=== PATIENT | female | born 1960 | race Caucasian/White ===

== ENCOUNTER 2021-08-31 21:27 | Observation (INO) | payer MEDICARE, BC, OTHER ==
--- NOTE | 2021-08-31 22:09 | ED ---
Chest Pain HPI - General Chief Complaint: Chest Pain Stated Complaint: Chest Pain Time Seen by Provider: 08/31/21 21:51 Source: patient, EMS Mode of arrival: EMS Limitations: no limitations - History of Present Illness Initial Comments: This patient is a 60-year-old woman who complains of having left chest pain that is been going on for couple of weeks. She states that the pain is constant, radiates to her left arm. She was seen for this previously and had stress test and echocardiogram arranged and that actually was performed in the clinic this a fternoon. Tonight the patient was sitting in [place] and felt that the symptoms were more severe and also accompanied by dizziness. EMS was called and brought the patient here. She is not having diaphoresis, dyspnea, nausea or vomiting, palpitations or syncope. MD Complaint: chest pain -: week(s) Onset: during rest Pain Location: left chest Pain Radiation: LUE Severity: moderate Quality: sharp Consistency: constant Improves With: nothing Worsens With: nothing Treatments Prior to Arrival: none - Related Data Allergies Allergy/AdvReac Type Severity Reaction Status Date / Time Sulfa (Sulfonamide Allergy Anaphylaxis Verified 08/31/21 21:44 Antibiotics) sulfamethoxazole Allergy Anaphylaxis Verified 08/31/21 21:44 [From Bactrim] sumatriptan [From Imitrex] Allergy Anaphylaxis Verified 08/31/21 21:44 trimethoprim [From Bactrim] Allergy Anaphylaxis Verified 08/31/21 21:44 Review of Systems ROS Statement: Those systems with pertinent positive or pertinent negative responses have been documented in the HPI. ROS Other: All systems not noted in ROS Statement are negative. Constitutional: Denies: fever, chills Respiratory: Denies: cough, dyspnea Cardiovascular: Reports: as per HPI, chest pain. Denies: palpitations, orthopnea, edema, syncope Gastrointestinal: Denies: abdominal pain, nausea, vomiting, melena, hematochezia Genitourinary: Denies: dysuria, hematuria Musculoskeletal: Denies: back pain Skin: Denies: rash Neurological: Denies: headache, weakness EKG Findings - EKG Results: EKG: interpreted by HARJINDER BENZ, sinus rhythm (Rate 87 bpm), normal axis, normal QRS, normal ST/T, no acute changes Past Medical History Past Medical History: Asthma, Diabetes Mellitus, Fibromyalgia, Hyperlipidemia, Hypertension, Respiratory Disorder, Rheumatoid Arthritis (RA) Additional Past Medical History / Comment(s): Esophagitis History of Any Multi-Drug Resistant Organisms: None Reported Past Surgical History: Cholecystectomy, Joint Replacement Additional Past Surgical History / Comment(s): Spinal fusion Past Psychological History: No Psychological Hx Reported Smoking Status: Never smoker Past Alcohol Use History: None Reported Past Drug Use History: None Reported General Exam Limitations: no limitations General appearance: alert, in no apparent distress Head exam: Present: atraumatic, normocephalic Eye exam: Present: normal appearance. Absent: scleral icterus, conjunctival injection Neck exam: Present: normal inspection Respiratory exam: Present: normal lung sounds bilaterally. Absent: respiratory distress, wheezes, rales, rhonchi, stridor, chest wall tenderness Cardiovascular Exam: Present: regular rate, normal rhythm, normal heart sounds. Absent: systolic murmur, diastolic murmur, rubs, gallop GI/Abdominal exam: Present: soft, tenderness (There is some mild left upper quadrant tenderness without rebound or guarding.), organomegaly (Liver is at the upper limit of normal by percussion). Absent: distended, guarding, rebound, rigid, mass Extremities exam: Present: normal inspection, normal capillary refill. Absent: pedal edema, calf tenderness Back exam: Present: normal inspection Neurological exam: Present: alert Skin exam: Present: warm, dry, intact, normal color. Absent: rash Course Vital Signs 08/31/21 21:38 Temperature 98.2 F Pulse Rate 85 Respiratory 18 Rate Blood Pressure 177/88 O2 Sat by Pulse 97 Oximetry Disposition Clinical Impression: Chest pain Disposition: HOME SELF-CARE Condition: Good Instructions (If sedation given, give patient instructions): Chest Pain (ED) Is patient prescribed a controlled substance at d/c from ED?: No Referrals: Ilsa Jackson MD [Primary Care Provider] - 1-2 days
[2021-08-31 22:35] LABS: Basophils % (A) 0 %; Eosinophils # (A) 0.1 k/uL (0-0.7); Eosinophils % (A) 3 %; HCT 39.9 % (34.0-46.0); Lymphocytes # (A) 2.3 k/uL (1.0-4.8); Lymphocytes % (A) 43 %; MCHC 32.6 g/dL (31.0-37.0); MCV 94.9 fL (80.0-100.0); Mean Platelet Volume 6.8; Monocytes # (A) 0.4 k/uL (0-1.0); Monocytes % (A) 7 %; Neutrophils # (A) 2.4 k/uL (1.3-7.7); Neutrophils % (A) 45 %; Platelet Count 200 k/uL (150-450); RBC 4.21 m/uL (3.80-5.40); WBC 5.4 k/uL (3.8-10.6)
--- NOTE | 2021-08-31 22:43 | XR ---
EXAMINATION TYPE: XR chest 2V DATE OF EXAM: 08/31/2021 COMPARISON: NONE HISTORY: Chest pain TECHNIQUE: 2 view FINDINGS: Heart and mediastinum are normal. Lungs are clear. Diaphragm is normal. Bony thorax appears normal. IMPRESSION: Normal chest.
[2021-08-31 22:48] LABS: ALT 40 U/L (4-34); AST 37 U/L (14-36); African American GFR (CKD) >90 (>60 ml/min/1.73 sqM); Albumin 4.1 g/dL (3.5-5.0); Alkaline Phosphatase 160 U/L (38-126); Amylase 45 U/L (30-110); Anion Gap 9 mmol/L; Blood Urea Nitrogen 15 mg/dL (7-17); Calcium 9.5 mg/dL (8.4-10.2); Carbon Dioxide 23 mmol/L (22-30); Chloride 106 mmol/L (98-107); Glucose 131 mg/dL (74-99); Lipase 141 U/L (23-300); Magnesium 1.8 mg/dL (1.6-2.3); Non-African American GFR(CKD) >90 (>60 ml/min/1.73 sqM); Potassium 3.7 mmol/L (3.5-5.1); Sodium 138 mmol/L (137-145); Total Bilirubin 0.5 mg/dL (0.2-1.3); Total Protein 6.6 g/dL (6.3-8.2)
[2021-09-01] MEDS ORDERED: NITROGLYCERIN SL TABS 0.4 MG TAB SUBLINGUAL PRN (00:38)
[2021-09-01] MEDS ORDERED: IPRATROPIUM 0.5 MG/2.5 ML NEBU INHALATION PRN (01:43)
[2021-09-01] MEDS ORDERED: ALBUTEROL NEBULIZED 2.5 MG/3 ML INHALATION PRN (01:43)
--- NOTE | 2021-09-01 01:44 | P.HPIM ---
History of Present Illness H&P Date: 09/01/21 The patient is a 60-year-old female with a PMH of type II DM, asthma, hyperlipidemia, hypertension, rheumatoid arthritis who presents to the emergency room with complaints of chest pain. The patient reports that she has been experiencing left-sided chest pain intermittently for the past few weeks. She underwent an exercise stress test as well as echocardiogram earlier today at [facility] but notes that she was at her confucianist at 6 PM when her pain worsened. She reported experiencing 9 out of 10 left-sided pressure- like chest discomfort, with associated shortness of breath, nausea, and lightheadedness. The pain was nonpleuritic and radiated down to her left arm with no exacerbating features. She notes that the pain was improved with sublingual nitroglycerin provided by the EMS. She denied experiencing diaphoresis, fever, chills, cough, or palpitations. EKG in the emergency room revealed sinus rhythm at [address]/T-wave changes noted as reviewed by me. Chest x-ray was unremarkable. Laboratory evaluation revealed a troponin of less than 0.012, AST 37, ALT 40, alk phos 160, and glucose 131. Review of systems: Pertinent positives and negatives as discussed in HPI, a complete review of systems was performed and all other systems are negative. Physical examination: General: non toxic, no distress, appears at stated age, morbidly obese Derm: no unusual rashes/lesions no unusual ecchymoses, warm, dry Head: atraumatic, normocephalic, symmetric Eyes: EOMI, no lid lag, anicteric sclera, pupils equal round reactive to light ENT: Nose and ears atraumatic, no thrush, no pharyngeal erythema Neck: No thyromegaly, no cervical lymphadenopathy, trachea midline, supple Mouth: no lip lesion, mucus membranes moist Cardiovascular: S1S2 reg, no murmur, positive posterior tibial pulse bilateral, no edema, capillary refill less than 2 seconds Lungs: CTA bilateral, no rhonchi, no rales , no accessory muscle use Abdominal: soft, nontender to palpation, no guarding, no appreciable organomegaly, normal bowel sounds Ext: no gross muscle atrophy, muscle strength 5 out of 5 in all 4 extremities grossly, no contractures, Neuro: CN II-XI grossly intact, light touch intact all 4 extremities, finger to nose within normal limits, Psych: Alert, oriented, appropriate affect Assessment/plan Chest pain, rule out ACS -Cardiac monitoring -Cardiology consulted -Trend troponin -Continue with aspirin -Consider obtaining records from [facility] for patient's stress test and echo Chronic conditions: Type II DM, hypertension, hyperlipidemia, asthma, rheumatoid arthritis -Check A1c -Lispro insulin sliding scale blood glucose monitoring -Continue with remaining home medications DVT prophylaxis -Heparin subcu The patient is admitted with an anticipated less than 2 midnight stay for evaluation of chest pain CODE STATUS: Full Code Discussed with: Patient Anticipated discharge date: in am Anticipated discharge place: Home Past Medical History Past Medical History: Asthma, Diabetes Mellitus, Fibromyalgia, Hyperlipidemia, Hypertension, Respiratory Disorder, Rheumatoid Arthritis (RA) Additional Past Medical History / Comment(s): Esophagitis History of Any Multi-Drug Resistant Organisms: None Reported Past Surgical History: Cholecystectomy, Joint Replacement Additional Past Surgical History / Comment(s): Spinal fusion Past Psychological History: No Psychological Hx Reported Smoking Status: Never smoker Past Alcohol Use History: None Reported Past Drug Use History: None Reported Medications and Allergies Home Medications Medication Instructions Recorded Confirmed Type Albuterol Nebulized [Ventolin 2.5 mg INHALATION RT-TID PRN 08/31/21 08/31/21 H istory Nebulized] Albuterol Sulfate [Ventolin HFA] 2 puff INHALATION RT-QID PRN 08/31/21 08/31/21 History Azelastine HCl 2 spr EA NOSTRIL BID 08/31/21 08/31/21 History Candesartan Cilexetil 16 mg PO DAILY 08/31/21 08/31/21 History Docusate [Colace] 100 mg PO BID 08/31/21 08/31/21 History EPINEPHrine (Auto Inject) [Epipen] 0.3 mg IM ONCE PRN 08/31/21 08/31/21 History Ergocalciferol [Vitamin D2 (1250 1,250 mcg PO WE 08/31/21 08/31/21 History Mcg = 43091 Iu)] Fluticasone Nasal [place] [Flonase 2 spr EA NOSTRIL BID 08/31/21 08/31/21 History Nasal [place]] Furosemide [Lasix] 20 mg PO DAILY 08/31/21 08/31/21 History Gabapentin [Neurontin] 100 mg PO BID 08/31/21 08/31/21 History Ipratropium Nebulized [Atrovent 0.5 mg INHALATION RT-TID PRN 08/31/21 08/31/21 History Nebulized 0.2 MG/ML] Levothyroxine Sodium [Synthroid] 125 mcg PO DAILY 08/31/21 08/31/21 History Mometasone/Formoterol [Dulera 200 2 puff INHALATION RT-BID 08/31/21 08/31/21 History Mcg-5 Mcg Inhaler] Montelukast [Singulair] 10 mg PO HS 08/31/21 08/31/21 History Multivitamins, Thera [Multivitamin 1 tab PO DAILY 08/31/21 08/31/21 History (formulary)] Pantoprazole [Protonix] 40 mg PO BID 08/31/21 08/31/21 History Potassium Chloride ER [K-Dur 20] 20 meq PO BID 08/31/21 08/31/21 History Pravastatin Sodium [Pravachol] 20 mg PO HS 08/31/21 08/31/21 History Sucralfate [Carafate] 1 gm PO AC-BID 08/31/21 08/31/21 History Topiramate [Topamax] 100 mg PO HS 08/31/21 08/31/21 History Upadacitinib [Rinvoq] 15 mg PO DAILY 08/31/21 08/31/21 History metFORMIN HCL [Glucophage XR] 750 mg PO BID 08/31/21 08/31/21 History Allergies Allergy/AdvReac Type Severity Reaction Status Date / Time Sulfa (Sulfonamide Allergy Rash/Hives/Abdominal Verified 08/31/21 23:34 Antibiotics) Pain sulfamethoxazole Allergy Rash/Hives Verified 08/31/21 23:34 [From Bactrim] trimethoprim [From Bactrim] Allergy Rash/Hives Verified 08/31/21 23:34 sumatriptan [From Imitrex] AdvReac Chest Pain Verified 08/31/21 23:34 Physical Exam Vitals: Vital Signs Temp Pulse Resp BP Pulse Ox 08/31/21 23:39 76 16 137/81 97 08/31/21 22:41 78 18 153/84 97 08/31/21 21:38 98.2 F 85 18 177/88 97 Intake and Output 08/31/21 08/31/21 09/01/21 14:59 22:59 06:59 Other: Weight 98.883 kg Results CBC & Chem 7: 08/31/21 22:22 08/31/21 22:22 Labs: Abnormal Lab Results - Last 24 Hours (Table) 08/31/21 Range/Units 22:22 Glucose 131 H (74-99) mg/dL AST 37 H (14-36) U/L ALT 40 H (4-34) U/L Alkaline Phosphatase 160 H (38-126) U/L
[2021-09-01] MEDS ORDERED: LEVOTHYROXINE 125 MCG TAB PO SCH (06:30)
[2021-09-01] MEDS ORDERED: SUCRALFATE 1 GM TAB PO SCH (07:30)
[2021-09-01] MEDS ORDERED: INSULIN ASPART (NovoLOG) 100 UNIT/ML VIAL SQ SCH (07:30)
[2021-09-01] MEDS ORDERED: SYMBICORT 160-4.5 MCG INHALER INHALATION SCH (08:00)
[2021-09-01] MEDS ORDERED: HEPARIN SODIUM,PORCINE/PF 5,000 UNIT/0.5 ML SYRINGE SQ SCH (08:00)
--- NOTE | 2021-09-01 08:16 | P.CRDCN ---
History of Present Illness Consult date: 09/01/21 History of present illness: HISTORY OF PRESENT ILLNESS: This is a 60-year-old female with a past medical history significant for hypertension, hyperlipidemia, diabetes, fibromyalgia, and hypothyroidism. Patient does not follow with a university internship. We have been asked to see the patient in consultation for chest pain. Patient examined at the bedside. Patient states she has been having chest pain on and off for the past 2 weeks. She reports the pain can come at any time and is not associated with exertion. She does report the symptoms seem to be worse at night however. She reports the pain is in the middle of her chest and under her left breast and goes down her left arm. She reports she saw her PCP in [facility] (who works out of [facility]) and ordered a stress test and an echocardiogram. Patient states she had this done yesterday at [facility] at [address]. She was not told of the results. 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 She states she began to feel lightheaded. After the sermon, EMS was called. She received two nitro in route to the hospital with some stated relief of the chest pain. This morning, she reports her chest is sore to touch from the echocardiogram she had done yesterday. She denies having chest wall tenderness prior to having the echo performed yesterday. * EKG reveals sinus mechanism with no signs of acute ischemia * Chest xray normal chest. * Laboratory data: WBC 5.4. Hemoglobin 13.0. Platelet count 200. D-dimer 0.33. Sodium 138. Potassium 3.7. BUN 15. Creatinine 0.71. Magnesium 1.8. AST 37. ALT 40. Troponin negative 3. * Current home cardiac medications include pravastatin 20 mg at night, Lasix 20 mg daily. REVIEW OF SYSTEMS: At the time of my exam: CONSTITUTIONAL: Denies fever or chills. HEENT: Denies blurred vision, vision changes, or eye pain. Denies hemoptysis CARDIOVASCULAR: Denies chest pain. Denies orthopnea. Denies PND. Denies palpitations RESPIRATORY: Denies shortness of breath. GASTROINTESTINAL: Denies abdominal pain. Denies nausea or vomiting. HEMATOLOGIC: Denies bleeding disorders. GENITOURINARY: Denies any blood in urine. SKIN: Denies pruitis. Denies rash. PHYSICAL EXAM: VITAL SIGNS: Reviewed. GENERAL: Well-developed in no acute distress. HEENT: Head is normocephalic. Pupils are equal, round. Sclerae anicteric. Mucous membranes of the mouth are moist. Neck supple. No JVD or thyromegaly LUNGS: Respirations even and unlabored. Lungs essentially clear to auscultation bilaterally. HEART: Regular rate and rhythm. S1 and S2 heard. ABDOMEN: Soft. Nondistended. Nontender. EXTREMITIES: Normal range of motion. No clubbing or cyanosis. Peripheral pulses intact. No lower extremity edema NEUROLOGIC: Awake and alert. Oriented x 3. ASSESSMENT: Chest pain Hypertension Hyperlipidemia Diabetes Obesity: BMI 39.9 PLAN: An acute coronary event has been ruled out Resume home cardiac medications Obtain records from [facility] of stress test and echocardiogram completed yesterday Further recommendations pending results of records obtained Nurse practitioner note has been reviewed by physician. Signing provider agrees with the documented findings, assessment, and plan of care. Past Medical History Past Medical History: Asthma, Diabetes Mellitus, Fibromyalgia, Hyperlipidemia, Hypertension, Respiratory Disorder, Rheumatoid Arthritis (RA) Additional Past Medical History / Comment(s): Esophagitis History of Any Multi-Drug Resistant Organisms: None Reported Past Surgical History: Cholecystectomy, Joint Replacement Additional Past Surgical History / Comment(s): Spinal fusion Past Psychological History: No Psychological Hx Reported Smoking Status: Never smoker Past Alcohol Use History: None Reported Past Drug Use History: None Reported Medications and Allergies Home Medications Medication Instructions Recorded Confirmed Type Albuterol Nebulized [Ventolin 2.5 mg INHALATION RT-TID PRN 08/31/21 08/31/21 History Nebulized] Albuterol Sulfate [Ventolin HFA] 2 puff INHALATION RT-QID PRN 08/31/21 08/31/21 History Azelastine HCl 2 spr EA NOSTRIL BID 08/31/21 08/31/21 History Candesartan Cilexetil 16 mg PO DAILY 08/31/21 08/31/21 History Docusate [Colace] 100 mg PO BID 08/31/21 08/31/21 History EPINEPHrine (Auto Inject) [Epipen] 0.3 mg IM ONCE PRN 08/31/21 08/31/21 History Ergocalciferol [Vitamin D2 (1250 1,250 mcg PO WE 08/31/21 08/31/21 History Mcg = 48158 Iu)] Fluticasone Nasal [place] [Flonase 2 spr EA NOSTRIL BID 08/31/21 08/31/21 History Nasal [place]] Furosemide [Lasix] 20 mg PO DAILY 08/31/21 08/31/21 History Gabapentin [Neurontin] 100 mg PO BID 08/31/21 08/31/21 History Ipratropium Nebulized [Atrovent 0.5 mg INHALATION RT-TID PRN 08/31/21 08/31/21 History Nebulized 0.2 MG/ML] Levothyroxine Sodium [Synthroid] 125 mcg PO DAILY 08/31/21 08/31/21 History Mometasone/Formoterol [Dulera 200 2 puff INHALATION RT-BID 08/31/21 08/31/21 History Mcg-5 Mcg Inhaler] Montelukast [Singulair] 10 mg PO HS 08/31/21 08/31/21 History Multivitamins, Thera [Multivitamin 1 tab PO DAILY 08/31/21 08/31/21 History (formulary)] Pantoprazole [Protonix] 40 mg PO BID 08/31/21 08/31/21 History Potassium Chloride ER [K-Dur 20] 20 meq PO BID 08/31/21 08/31/21 History Pravastatin Sodium [Pravachol] 20 mg PO HS 08/31/21 08/31/21 History Sucralfate [Carafate] 1 gm PO AC-BID 08/31/21 08/31/21 History Topiramate [Topamax] 100 mg PO HS 08/31/21 08/31/21 History Upadacitinib [Rinvoq] 15 mg PO DAILY 08/31/21 08/31/21 History metFORMIN HCL [Glucophage XR] 750 mg PO BID 08/31/21 08/31/21 History Allergies Allergy/AdvReac Type Severity Reaction Status Date / Time Sulfa (Sulfonamide Allergy Rash/Hives/Abdominal Verified 08/31/21 23:34 Antibiotics) Pain sulfamethoxazole Allergy Rash/Hives Verified 08/31/21 23:34 [From Bactrim] trimethoprim [From Bactrim] Allergy Rash/Hives Verified 08/31/21 23:34 sumatriptan [From Imitrex] AdvReac Chest Pain Verified 08/31/21 23:34 Physical Exam Vitals: Vital Signs Temp Pulse Resp BP Pulse Ox 09/01/21 06:42 97.9 F 64 16 131/64 99 09/01/21 02:35 76 15 130/45 99 08/31/21 23:39 76 16 137/81 97 08/31/21 22:41 78 18 153/84 97 08/31/21 21:38 98.2 F 85 18 177/88 97 Intake and Output 08/31/21 09/01/21 09/01/21 22:59 06:59 14:59 Other: Weight 98.883 kg Results 08/31/21 22:22 08/31/21 22:22 Cardiac Enzymes 08/31/21 08/31/21 09/01/21 Range/Units 22:22 22:22 01:27 AST 37 H (14-36) U/L Troponin I <0.012 <0.012 (0.000-0.034) ng/mL 09/01/21 Range/Units 03:14 AST (14-36) U/L Troponin I <0.012 (0.000-0.034) ng/mL CBC 08/31/21 Range/Units 22:22 WBC 5.4 (3.8-10.6) k/uL RBC 4.21 (3.80-5.40) m/uL Hgb 13.0 (11.4-16.0) gm/dL Hct 39.9 (34.0-46.0) % Plt Count 200 (150-450) k/uL Comprehensive Metabolic Panel 08/31/21 Range/Units 22:22 Sodium 138 (137-145) mmol/L Potassium 3.7 (3.5-5.1) mmol/L Chloride 106 (98-107) mmol/L Carbon Dioxide 23 (22-30) mmol/L BUN 15 (7-17) mg/dL Creatinine 0.71 (0.52-1.04) mg/dL Glucose 131 H (74-99) mg/dL Calcium 9.5 (8.4-10.2) mg/dL AST 37 H (14-36) U/L ALT 40 H (4-34) U/L Alkaline Phosphatase 160 H (38-126) U/L Total Protein 6.6 (6.3-8.2) g/dL Albumin 4.1 (3.5-5.0) g/dL Current Medications Generic Name Dose Route Start Last Admin Trade Name Freq PRN Reason Stop Dose Admin Albuterol Sulfate 2.5 mg 09/01/21 01:43 Albuterol Nebulized 2.5 Mg/3 Ml INHALATION RT-QID PRN Shortness Of Breath Aspirin 325 mg 09/02/21 09:00 Aspirin 325 Mg Tab PO DAILY [facility] Budesonide/Formoterol Fumarate 2 puff 09/01/21 08:00 09/01/21 07:05 Symbicort 160-4.5 Mcg Inhaler INHALATION 2 puff RT-BID [facility] Administration Docusate Sodium 100 mg 09/01/21 09:00 Docusate 100 Mg Cap PO BID [facility] Fluticasone Propionate 2 spray 09/01/21 09:00 Fluticasone 50mcg/[place] Nasal 16gm EA NOSTRIL BID [facility] Furosemide 20 mg 09/01/21 09:00 Furosemide 20 Mg Tab PO DAILY [facility] Gabapentin 100 mg 09/01/21 09:00 Gabapentin 100 Mg Cap PO BID [facility] Heparin Sodium (Porcine) 5,000 unit 09/01/21 08:00 Heparin Sodium,Porcine/Pf 5,000 Unit/0.5 Ml Syringe SQ Q8HR [facility] Insulin Aspart 0 unit 09/01/21 07:30 Insulin Aspart (Novolog) 100 Unit/Ml Vial SQ ACHS [facility] Protocol Ipratropium [place] 0.5 mg 09/01/21 01:43 Ipratropium 0.5 Mg/2.5 Ml Nebu INHALATION RT-TID PRN Shortness Of Breath Levothyroxine Sodium 125 mcg 09/01/21 06:30 09/01/21 06:58 Levothyroxine 125 Mcg Tab PO 125 mcg DAILY@0630 [facility] Administration Montelukast Sodium 10 mg 09/01/21 21:00 Montelukast 10 Mg Tab PO HS [facility] Multivitamins 1 each 09/01/21 09:00 Multivitamins, Thera 1 Each Tab PO DAILY [facility] Nitroglycerin 0.4 mg 09/01/21 00:38 Nitroglycerin Sl Tabs 0.4 Mg Tab SUBLINGUAL Q5M PRN Chest Pain Pantoprazole Sodium 40 mg 09/01/21 09:00 Pantoprazole 40 Mg Tablet PO BID [facility] Potassium Chloride 20 meq 09/01/21 09:00 Potassium Chloride Er 20 Meq Tab.Er PO BID [facility] Pravastatin Sodium 20 mg 09/01/21 21:00 Pravastatin Sodium 20 Mg Tab PO HS [facility] Sucralfate 1 gm 09/01/21 07:30 Sucralfate 1 Gm Tab PO AC-BID [facility] Topiramate 100 mg 09/01/21 21:00 Topiramate 100 Mg Tab PO HS [facility] Intake and Output 08/31/21 09/01/21 09/01/21 22:59 06:59 14:59 Other: Weight 98.883 kg 08/31/21 22:22 08/31/21 22:22
[2021-09-01 08:24] VITALS: BP 121/72; PULSE 68; RESP 20; TEMP 97.7
[2021-09-01] MEDS ORDERED: FUROSEMIDE 20 MG TAB PO SCH (09:00)
[2021-09-01] MEDS ORDERED: MULTIVITAMINS, THERA 1 EACH TAB PO SCH (09:00)
[2021-09-01] MEDS ORDERED: DOCUSATE 100 MG CAP PO SCH (09:00)
[2021-09-01] MEDS ORDERED: PANTOPRAZOLE 40 MG TABLET PO SCH (09:00)
[2021-09-01] MEDS ORDERED: POTASSIUM CHLORIDE ER 20 MEQ TAB.ER PO SCH (09:00)
[2021-09-01] MEDS ORDERED: GABAPENTIN 100 MG CAP PO SCH (09:00)
[2021-09-01] MEDS ORDERED: FLUTICASONE 50MCG/SPRAY NASAL 16GM EA NOSTRIL SCH (09:00)
[2021-09-01 09:38] LABS: Glucose,Whole Blood 122 mg/dL (75-99)
--- NOTE | 2021-09-01 10:38 | P.DS ---
<Anjum Arzate - Last Filed: 09/01/21 10:50> Providers Expected date of discharge: 09/01/21 Hospital Course: Discharge Diagnosis: Atypical chest pain, acute coronary event ruled out. Hypertension Hyperlipidemia Type II ham-sstrsvu-dcshyxeyn diabetes mellitus Hypothyroidism Asthma Fibromyalgia Rheumatoid arthritis Hospital Course: Patient is a very pleasant 60-year-old female with a past medical history of hypertension, hyperlipidemia, type II ktu-fsliiha-zipwvzkwe diabetes mellitus, hypothyroidism, asthma, fibromyalgia, and rheumatoid arthritis. She presented to the Emergency department with a chief complaint of chest pain. Reporting that she has been experiencing intermittent chest pain off and on over the last 2 weeks. Patient reports she underwent a stress test and echocardiogram through [facility] yesterday that was ordered by her primary doctor secondary to these reports of intermittent chest pain. Patient reports the pain is to her left chest and describes as a squeezing sensation. Patient underwent full evaluation. Chest x-ray was negative for acute cardiopulmonary process. CBC and BMP were unremarkable. EKG revealed normal sinus rhythm at 87 bpm with no noted T wave or ST abnormality showing no signs of acute ischemia. Troponins trended negative at less than 0.012 3 draws. She was admitted under our services with consultation to cardiology and monitored overnight. Patient's condition remained stable throughout the night. She reported continued periodic episodes of intermittent chest tightness but denies any changes in or increase and previous pain. She was evaluated by cardiology. Cardiology reviewed patient's echocardiogram and stress test results from [facility] reporting all negative and normal findings. Cardiology recommended patient follow up outp atient in their office. Patient does not currently have a silk finisher that she follows with. Her PCP is Dr. Jackson. Patient's vitals have remained stable, she denies any further complaints at this time including headache, lightheadedness, dizziness, palpitations, shortness of breath, or experiencing any numbness/tingling/weakness/swelling in her extremities. Patient is medically stable for discharge at this time and to follow up with her PCP in 1-2 days and with cardiology in 1 week. Physical exam: Vital signs reviewed and stable. General: Nontoxic, no distress and appears stated age. Derm: Skin warm and dry, normal coloration for ethnicity. Head: Atraumatic, normocephalic and symmetric. Eyes: EOMs intact, no lid lag, and anicteric sclera Mouth: no lip lesions, mucus membranes moist Cardiovascular: regular rate and rhythm with normal S1S2, systolic murmur, positive posterior tibial pulses bilaterally, and cap refill < 2 seconds. No edema. Lungs: Respirations even, regular, and unlabored on room air. Lungs CTA bilaterally, no rhonchi, no rales, no wheezing, and no accessory muscle usage. Abdominal: soft, nontender to palpation, no guarding, no appreciable organomega ly Ext: ROM intact. No gross muscle atrophy, no edema, no contractures Neuro: Speech clear, face symmetrical and CN II-XII grossly intact with no noted focal neuro deficits Psych: Alert and oriented to person, place, time, and situation. Appropriate and pleasant affect. A total of 35 minutes of time were spent preparing this complex discharge summary. Patient Condition at Discharge: Stable Plan - Discharge Summary Discharge Rx Participant: No New Discharge Prescriptions: Continue Upadacitinib [Rinvoq] 15 mg PO DAILY Topiramate [Topamax] 100 mg PO HS Sucralfate [Carafate] 1 gm PO AC-BID Pravastatin Sodium [Pravachol] 20 mg PO HS Pantoprazole [Protonix] 40 mg PO BID Multivitamins, Thera [Multivitamin (formulary)] 1 tab PO DAILY Montelukast [Singulair] 10 mg PO HS Levothyroxine Sodium [Synthroid] 125 mcg PO DAILY Furosemide [Lasix] 20 mg PO DAILY Docusate [Colace] 100 mg PO BID Mometasone/Formoterol [Dulera 200 Mcg-5 Mcg Inhaler] 2 puff INHALATION RT-BID Fluticasone Nasal [place] [Flonase Nasal [place]] 2 spr EA NOSTRIL BID Candesartan Cilexetil 16 mg PO DAILY Albuterol Sulfate [Ventolin HFA] 2 puff INHALATION RT-QID PRN PRN Reason: Shortness Of Breath Ipratropium Nebulized [Atrovent Nebulized 0.2 MG/ML] 0.5 mg INHALATION RT-TID PRN PRN Reason: Shortness Of Breath metFORMIN HCL [Glucophage XR] 750 mg PO BID EPINEPHrine (Auto Inject) [Epipen] 0.3 mg IM ONCE PRN PRN Reason: Anaphylaxis Potassium Chloride ER [K-Dur 20] 20 meq PO BID Gabapentin [Neurontin] 100 mg PO BID Ergocalciferol [Vitamin D2 (1250 Mcg = 66392 Iu)] 1,250 mcg PO WE Azelastine HCl 2 spr EA NOSTRIL BID Albuterol Nebulized [Ventolin Nebulized] 2.5 mg INHALATION RT-TID PRN PRN Reason: Shortness Of Breath Discharge Medication List Albuterol Nebulized [Ventolin Nebulized] 2.5 mg INHALATION RT-TID PRN 08/31/21 [History] Albuterol Sulfate [Ventolin HFA] 2 puff INHALATION RT-QID PRN 08/31/21 [History] Azelastine HCl 2 spr EA NOSTRIL BID 08/31/21 [History] Candesartan Cilexetil 16 mg PO DAILY 08/31/21 [History] Docusate [Colace] 100 mg PO BID 08/31/21 [History] EPINEPHrine (Auto Inject) [Epipen] 0.3 mg IM ONCE PRN 08/31/21 [History] Ergocalciferol [Vitamin D2 (1250 Mcg = 13516 Iu)] 1,250 mcg PO WE 08/31/21 [History] Fluticasone Nasal [place] [Flonase Nasal [place]] 2 spr EA NOSTRIL BID 08/31/21 [History] Furosemide [Lasix] 20 mg PO DAILY 08/31/21 [History] Gabapentin [Neurontin] 100 mg PO BID 08/31/21 [History] Ipratropium Nebulized [Atrovent Nebulized 0.2 MG/ML] 0.5 mg INHALATION RT-TID PRN 08/31/21 [History] Levothyroxine Sodium [Synthroid] 125 mcg PO DAILY 08/31/21 [History] Mometasone/Formoterol [Dulera 200 Mcg-5 Mcg Inhaler] 2 puff INHALATION RT-BID 08/31/21 [History] Montelukast [Singulair] 10 mg PO HS 08/31/21 [History] Multivitamins, Thera [Multivitamin (formulary)] 1 tab PO DAILY 08/31/21 [History] Pantoprazole [Protonix] 40 mg PO BID 08/31/21 [History] Potassium Chloride ER [K-Dur 20] 20 meq PO BID 08/31/21 [History] Pravastatin Sodium [Pravachol] 20 mg PO HS 08/31/21 [History] Sucralfate [Carafate] 1 gm PO AC-BID 08/31/21 [History] Topiramate [Topamax] 100 mg PO HS 08/31/21 [History] Upadacitinib [Rinvoq] 15 mg PO DAILY 08/31/21 [History] metFORMIN HCL [Glucophage XR] 750 mg PO BID 08/31/21 [History] Follow up Appointment(s)/Referral(s): Juan Diego Villa MD [STAFF PHYSICIAN] - 1 Week (office will call pt with appointment ) Ilsa Jackson MD [Primary Care Provider] - 1-2 days Patient Instructions/Handouts: Chest Pain (ED) Activity/Diet/Wound Care/Special Instructions: Activity: As tolerated. Take breaks as needed. Diet: Heart healthy and carb consistent diet. Avoid salts, or foods with hidden salts such as canned or boxed foods and frozen dinners. Extra salt makes your heart work harder and traps the fluid in your body for longer. Special Instructions: Take all of your medications as directed and remember to keep all of your doctor's appointments and follow-up as needed. Thank you for allowing us to participate in your care, it was truly a pleasure having you for our patient!!! Discharge Disposition: HOME SELF-CARE <Natividad Tristan - Last Filed: 09/01/21 17:35> Providers Date of admission: 09/01/21 00:38 Attending physician: Jannet Cortez MD Primary care physician: Ilsa Jackson [facility] Course: Anjum Arzate NP rendered care for this patient independently, reviewed the findings and plan as documented in the note above. I did not physically speak with or examine the patient on this date.
[2021-09-01] MEDS ORDERED: MONTELUKAST 10 MG TAB PO SCH (21:00)
[2021-09-01] MEDS ORDERED: TOPIRAMATE 100 MG TAB PO SCH (21:00)
[2021-09-01] MEDS ORDERED: PRAVASTATIN SODIUM 20 MG TAB PO SCH (21:00)
[2021-09-02] MEDS ORDERED: ASPIRIN 325 MG TAB PO SCH (09:00)
== END 2021-09-01 11:48 | disposition home or self-care (01) ==
LOC: EC 21:27 → 6NMEDSUR 09-01 00:38
PROVIDERS: ADMIT Internal Medicine; ATTEND Internal Medicine
DX: R07.89 Other chest pain (principal); I10 Essential (primary) hypertension; J45.909 Unspecified asthma, uncomplicated; E11.9 Type 2 diabetes mellitus without complications; R11.0 Nausea; R42 Dizziness and giddiness; E03.9 Hypothyroidism, unspecified; E78.5 Hyperlipidemia, unspecified; M79.7 Fibromyalgia; M06.9 Rheumatoid arthritis, unspecified; E66.01 Morbid (severe) obesity due to excess calories; Z68.39 Body mass index [BMI] 39.0-39.9, adult; Z79.890 Hormone replacement therapy; Z79.51 Long term (current) use of inhaled steroids; Z79.84 Long term (current) use of oral hypoglycemic drugs; Z79.899 Other long term (current) drug therapy; Z88.2 Allergy status to sulfonamides; Z88.1 Allergy status to other antibiotic agents; Z88.8 Allergy status to other drugs, medicaments and biological substances; Z90.49 Acquired absence of other specified parts of digestive tract; Z98.1 Arthrodesis status; Z96.60 Presence of unspecified orthopedic joint implant; Z87.19 Personal history of other diseases of the digestive system; Z20.822 Contact with and (suspected) exposure to COVID-19
CPT/HCPCS: 96372; 99285; 36415; 94640; 93005 ×2; 85379; 80053; 82150; 83690; 83735; 84484 ×2; 85025; 83036; 87635; 71046; G0378; J1644